=== PATIENT | female | born 1995 | race Caucasian/White ===

== ENCOUNTER 2016-07-10 10:39 | Emergency (ER) | payer MEDICAID ==
[~2016-07-10] VITALS: Ht 165.1 cm; Wt 63.5 kg
[2016-07-10] MEDS ORDERED: ONDANSETRON HCL 4 MG/2 ML VIAL IM ONE (13:00)
[2016-07-10] MEDS ORDERED: KETOROLAC TROMETHAMINE 60 MG/2 ML VIAL IM ONE (13:00)
[2016-07-10] MEDS ORDERED: ONDANSETRON HCL 4 MG TABLET PO ONE (13:00)
[2016-07-10 14:11] VITALS: BP 136/85
== END 2016-07-10 15:54 | disposition home or self-care (01) ==
LOC: EMS 10:41
DX: S39.012A Strain of muscle, fascia and tendon of lower back, initial encounter (principal); X58.XXXA Exposure to other specified factors, initial encounter; Y93.89 Activity, other specified; Y92.89 Other specified places as the place of occurrence of the external cause; Y99.8 Other external cause status
CPT/HCPCS: 81002; 81025; 96372; 99283; J1885; Q0162